=== PATIENT | male | born 1960 | race Asian ===

== ENCOUNTER 2021-05-03 05:22 | Day surgery (SDC) | payer OTHER ==
[~2021-05-03] VITALS: Ht 177.8 cm; Wt 80.2 kg
[2021-05-03] MEDS ORDERED: LISI5TAB7 PO (05:54)
[2021-05-03] MEDS ORDERED: METF500T17 PO (05:54)
[2021-05-03] MEDS ORDERED: LACTATED RINGERS 1,000 ML IV SCH (06:30)
[2021-05-03] MEDS ORDERED: CHLORHEXIDINE 15 ML UDC PO ONE (06:30)
[2021-05-03 06:42] VITALS: BP 151/96
[2021-05-03 06:55] LABS: ALANINE AMINOTRANSFERASE 26 U/L (12-78); ALBUMIN 3.9 g/dL (3.4-5.0); ANION GAP 6 mmol/L (5-15); CALCIUM 9.3 mg/dL (8.5-10.1); CHLORIDE 105 mmol/L (98-107); CREATININE 0.83 mg/dL (0.7-1.3)
[2021-05-03 06:57] LABS: ALKALINE PHOSPHATASE 56 U/L (45-117); BILIRUBIN,TOTAL 0.5 mg/dL (0.2-1.0); TOTAL PROTEIN 7.8 g/dL (6.4-8.2)
[2021-05-03] MEDS ORDERED: BUPIVACAINE/PF 0.5% ONE ×3 (07:07→07:20)
[2021-05-03] MEDS ORDERED: EPINEPHRINE 1 MG/ML, 1ML ONE (07:07)
[2021-05-03] MEDS ORDERED: MIDAZOLAM 1 MG/ML, 2ML ONE (07:20)
[2021-05-03] MEDS ORDERED: FENTANYL PF 250 MCG/5ML ONE (07:20)
[2021-05-03] MEDS ORDERED: PROPOFOL 10 MG/ML, 20ML ONE (07:21)
[2021-05-03] MEDS ORDERED: ACETAMINOPHEN 325 MG TABLET PO PRN (08:00)
[2021-05-03] MEDS ORDERED: OXYcodone 5 MG/5 ML ORAL.SOL UDC PO PRN (08:00)
[2021-05-03] MEDS ORDERED: DIAZEPAM 5 MG/ML, 2ML IVPush PRN (08:00)
[2021-05-03] MEDS ORDERED: PROMETHAZINE 25 MG/ML, 1ML IVPush PRN (08:00)
[2021-05-03] MEDS ORDERED: MEPERIDINE/PF 25MG/0.5ML IVPush PRN (08:00)
[2021-05-03] MEDS ORDERED: ONDANSETRON 2MG/ML, 2ML IVPush PRN (08:00)
[2021-05-03] MEDS ORDERED: LABETALOL 5MG/ML, 20ML IV PRN (08:00)
[2021-05-03] MEDS ORDERED: FENTANYL PF 100 MCG/2ML IV PRN (08:00)
[2021-05-03] MEDS ORDERED: hydrALAzine 20 MG/ML, 1ML IV PRN (08:00)
[2021-05-03] MEDS ORDERED: HYDROmorphone 1 MG/ML, 1ML INJ IVPush PRN (08:00)
[2021-05-03] MEDS ORDERED: BUPIVACAINE/PF-EPI 0.5% 1:200K INFIL ONE (08:04)
[2021-05-03] MEDS ORDERED: ONDA4TAB7 PO (08:39)
[2021-05-03] MEDS ORDERED: HYDR-2214 PO (08:39)
[2021-05-03] MEDS ORDERED: SUCCINYLCHOLINE 20 MG/ML, 10ML ONE (09:12)
[2021-05-03] MEDS ORDERED: ONDANSETRON 2MG/ML, 2ML ONE (09:12)
[2021-05-03] MEDS ORDERED: DEXAMETHASONE 4 MG/ML, 5ML ONE (09:13)
[2021-05-03] MEDS ORDERED: LIDOCAINE-MPF 2% ,5ML ONE (09:13)
[2021-05-03] MEDS ORDERED: CEFAZOLIN 1,000 MG ONE ×2 (09:13)
== END 2021-05-03 09:50 | disposition home or self-care (01) ==
LOC: OUT 05:22
PROVIDERS: ATTEND Surgery
DX: K42.9 Umbilical hernia without obstruction or gangrene (principal); L91.0 Hypertrophic scar; R19.05 Periumbilic swelling, mass or lump; I10 Essential (primary) hypertension; E78.5 Hyperlipidemia, unspecified; E11.9 Type 2 diabetes mellitus without complications; Z20.822 Contact with and (suspected) exposure to COVID-19; Z79.899 Other long term (current) drug therapy
CPT/HCPCS: 11402; 49585; 80053; 82962; 87635; 88305; 88341; 88342; 93005; J0171; J0330; J0690; J1100; J2250; J2405; J2704; J3010; J7120